=== PATIENT | female | born 1935 | race African-American/Black ===

== ENCOUNTER 2017-07-12 16:35 | Inpatient (IN) | payer MEDICARE ==
[~2017-07-12 16:35] MED LIST: ISOVUE-370 76%-LOCM 1 ML ONE
[2017-07-12] MEDS ORDERED: Fentanyl 100 MCG/2 ML VIAL ONE (17:27)
[2017-07-12] MEDS ORDERED: Ondansetron HCl/PF 4 MG/2 ML Vial ONE (17:27)
[2017-07-12 17:38] LABS: Hemoglobin 10.9 g/dL (12.0-16.0); Mean Corpuscular HGB CONC 31.7 g/dL (32.0-36.0); Mean Corpuscular Hemoglobin 34.4 pg (27.0-31.0); Mean Platelet Volume 8.5 fL (7.4-10.4); Platelet Count 132 thou/uL (130-400); RBC Distribution Width 13.3 % (11.5-14.5); Red Blood Cell (RBC) Count 3.16 mill/uL (4.20-5.40); White Blood Cell (WBC) Count 16.8 thou/uL (4.8-10.8)
[2017-07-12 17:59] LABS: ALT (SGPT) 36 U/L (8-55); AST (SGOT) 45 U/L (5-34); Alkaline Phosphatase 84 U/L (40-150); Anion Gap 18 mmol/L (10-20); BUN (Urea Nitrogen) 29 mg/dL (9.8-20.1); Bilirubin, Total 0.6 mg/dL (0.2-1.2); Calc. Creatinine Clearance 0 mL/min (70-130); Carbon Dioxide 25 mmol/L (23-31); Chloride 95 mmol/L (98-107); Estimated GFR-MDRD 4; Globulin 3.1 g/dL (2.4-3.5); Glucose 124 mg/dL (83-110); Lipase 20 U/L (8-78); Magnesium 1.4 mg/dL (1.6-2.6); Protein, Total 6.1 g/dL (6.0-8.3); Sodium 135 mmol/L (136-145)
[2017-07-12 18:01] LABS: Band 4 % (5-11); CKMB 1.8 ng/mL (0-6.6); Lymphocytes 2 % (21-51); MDiff Complete? YES; Monocytes 6 % (0-10); Neutrophil 88 % (42-75); PLT Morphology Comment Appears Adequate; Troponin I 0.074 ng/mL (< 0.028)
--- NOTE | 2017-07-12 19:15 | RAD ---
CHEST ONE VIEW: History: Pneumonia. Comparison: 07-09-17 FINDINGS: Right vascular stent is present in the axilla and subclavian regions. Pulmonary edema is improving. H eart size is not as large as the prior exam. Severe degenerative disease of the left shoulder. Mild atelectatic changes in the lung bases. IMPRESSION: 1. Mild interval improvement of the volume overload/edema. 2. Small right effusion. 3. Atelectasis lung base. POS: [facility]
--- NOTE | 2017-07-12 19:39 | CT ---
CT ABDOMEN AND PELVIS WITH CONTRAST: History: Abdominal pain, nausea, vomiting. Comparison: 01-22-14 FINDINGS: There are atelectatic changes in the lung bases. Pulmonary trunk is mildly enlarged. No pericardiac e ffusion. There is small volume of intraperitoneal gas between the anterior right hemidiaphragm and the liver. There is also other foci of gas scattered throughout the abdomen as well as gas extending into the um bilicus. Small volume free fluid in the pelvis. Kidneys are atrophic. There are extensive calcifications of the aorta and anterior vessels. Calcified uterine fibroids. Peritoneal dialysis catheter is in place with gas along the dependent lum en. According to the notes the patient just had some fluid taken off of the abdomen. Large severe degenerative disc space disease at L3-4 and L4-5. 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 Mild paraspinal musculature or atrophy. There are fibroserous cysts ==== normal head and neck junctions, as well as subchondral cysts in the acetabulum. There are erosions of the SI joints. These are all sequellae of chronic renal failure and dialysis. IMPRESSION: 1. Multifocal small foci of intraperitoneal gas, likely sequaellae of patient's peritoneal dialysis g iven that there is gas within the lumen of the catheter. Clinical correlation advised. 2. Small volume free fluid in the pelvis. 3. No evidence for bowel obstruction. 4. Normal appendix. 5. Moderately calcified aorta and mesenteric vessels. A component of low grade ischemia cannot be tot ally excluded. 6. New from the comparison examination, abnormal wedge shaped area of splenic hypoperfusion suggests infarction. This may be the source of patient's pain. POS: [facility]
[2017-07-12] MEDS ORDERED: Morphine 4 MG/ML VIAL ONE (20:32)
[2017-07-12] MEDS ORDERED: cefTRIAXone\\ROCEPHIN 2 GM in Sodium Chloride 0.9% 100 ML IVPB SCH (20:45)
[2017-07-12 21:16] LABS: Fluid, Glucose 458 mg/dL (Not Available); Fluid, Protein Less than 1.0 g/dL (Not Available)
[2017-07-12] MEDS ORDERED: Ondansetron ODT 4 MG TAB PO PRN (21:26)
[2017-07-12] MEDS ORDERED: Bisacodyl 5 MG TAB PO PRN (21:26)
[2017-07-12] MEDS ORDERED: Ondansetron HCl/PF 4 MG/2 ML Vial IVP PRN (21:26)
[2017-07-12] MEDS ORDERED: Acetaminophen 325 MG TAB PO PRN (21:26)
[2017-07-12] MEDS ORDERED: Acetaminophen 650 MG Suppository PR PRN (21:26)
[2017-07-12] MEDS ORDERED: Morphine 4 MG/ML VIAL SLOW IVP PRN (21:26)
[2017-07-12 21:32] LABS: Body Fluid Source PERITONEAL FLUID; Clarity Clear (Clear)
[2017-07-12 21:33] LABS: BF Color Colorless; BF RBC Count - Manual 1 /cumm; BF WBC/Nonhematics Ct. - Manua 81 /cumm; Tube # EDTA
[2017-07-12 21:46] LABS: Lactic Acid 2.6 mmol/L (0.5-2.2)
[2017-07-12 22:04] LABS: BF Segmented Neutrophils 86 %; Cell Count Non Hematic 13 %; Lymphocytes 1 %
[2017-07-13 00:30] LABS: Troponin I 0.069 ng/mL (< 0.028)
--- NOTE | 2017-07-13 02:05 | HP ---
PRIMARY CARE PHYSICIAN: Dr. Vasquez. CHIEF COMPLAINT: Abdominal pain. HISTORY OF PRESENT ILLNESS: This is a 81-year-old -[place] female with a known history of hy pertensive renal disease now on peritoneal dialysis. She had previously been on hemodialysis pickup, clotting off her fistulas, and so eventually was switched to peritoneal dialysis. She has been feel ing poorly for the past week, was seen in the emergency room three days ago for generalized weakness and was discharged home after checking her peritoneal fluid analysis. Patient has also been vomiting regularly for the last week and a half everytime she eats solid food and overall is feeling poorly, her blood pressure has been borderline as well. She had not taken any of her antihypertensives for a bout 3 months and occasionally has to change her dialysate fluid to adjust for low blood pressures. Patient reports that sometime during the day that she is not sure exactly when she started having per iumbilical abdominal pain. The pain migrated into the right upper quadrant then down to the suprapub ic area and occasionally is diffuse as well. Patient reports it became severe in the afternoon, and so she eventually came into the emergency room to be evaluated. She is unable to characterize the pa in any further and has no other associated symptoms with it. In the ER, she had a CT of the abdomen done as well as a peritoneal fluid analysis done. Her CT of the abdomen did show a new-splenic infar ct, otherwise unremarkable except for changes from her peritoneal dialysis including a very small caleb unt of the urine in the catheter and into the belly. She received Zofran, fentanyl, and morphine in the emergency room and is feeling much better now. PAST MEDICAL HISTORY: 1. End-stage renal disease on peritoneal dialysis. 2. Hypertension. 3. Diabetes mellitus, type 2 off medications for several years due to her advancing renal dysfunctio n. 4. Dyslipidemia. 5. Morbid obesity. PAST SURGICAL HISTORY: Patient has had multiple access procedures in her upper extremities and now h as a peritoneal dialysis catheter in place. ALLERGIES: 1. HYDRALAZINE. 2. H1N1 FLU VACCINE. SOCIAL HISTORY: Patient is a former smoker, quit in 1987, very rare. Alcohol none recently, no illi cit drug use. FAMILY HISTORY: Significant for diabetes, hypertension, and stroke. CURRENT MEDICATIONS: 1. Sensipar 180 mg daily. 2. Calcium acetate 667 mg 2 capsules 3 times a day. 3. Gabapentin 300 mg 3 times a day. 4. Aspirin 81 mg daily. 5. Vitamin D3 of 2000 units 2 caps a day. 6. Dialyvite 800 with Zinc 15, 0.1 mg/15 mg daily. REVIEW OF SYSTEMS: Constitutional: No fevers or chills. She does get cold easily. Eyes: She had blurred vision last week, several days ago and got worse when she was seen in the emergency room on , has since resolved. No flashing lights, no other eye complaints. ENT: No congestion, drai nage, or sore throat. Specifically today, she does get chronic nasal congestion from allergies. Car diovascular: No chest pain, no palpitations or racing heart. Pulmonary: No coughing, wheezing, or shortness of breath. Gastrointestinal: See HPI. Nausea and vomiting have been chronic issue for at least a week and a half from possibly longer, just vomiting undigested food if she eats solid food. No diarrhea or constipation. Genitourinary: Patient does not produce any urine. Musculoskeletal: Patient has some chronic muscle aches in her joints, especially in her hands and some numbness in he r fingers, this is chronic. No acute musculoskeletal changes. Skin: No rashes or lesions is noted. Neurologic: She has chronic numbness and tingling in her fingers of both hands, this has not grady ed recently. No lateralizing weakness or other focal neurologic symptoms. PHYSICAL EXAMINATION: VITAL SIGNS: Blood pressure 118/55, pulse 102, respirations 20, temperature 97.9, O2 sat 98% on room air, pain originally 8/10, now significantly improved. GENERAL: This is a well-developed, obese, female in no apparent distress. HEENT: Pupils are equal, round, and reactive to light. She does have bilateral cataracts. Orophary nx is clear without lesions, erythema, or exudate. She has moist mucous membranes. NECK: Supple, no lymphadenopathy, no thyroid nodules or enlargement, no JVD. HEART: Regular rate and rhythm. No murmurs, rubs, or gallops. LUNGS: Clear to auscultation bilaterally. No wheezes, crackles, or rhonchi. ABDOMEN: Soft, mild tenderness to palpation, diffusely more significant tenderness to palpation on t he left, palpation deeply and suprapubically as well. No guarding, no rebound tenderness. Normoacti ve bowel sounds, no distention. Peritoneal dialysis catheter is in place. There is no surrounding r edness or drainage. EXTREMITIES: No clubbing or cyanosis. She has trace pretibial edema bilaterally. SKIN: No rashes or lesions noted. NEUROLOGIC: She has no facial droop. She has deep tendon reflexes 2+ in all extremities and she has equal strength in all extremities. LABORATORY DATA: CBC with a white blood cell count of 16.8, this is up from 13 three days ago, hemog lobin 10.9, which is stable from her previous hematocrit 34.3, platelet count 132. She has 88% neutr ophils, but only 4% bands. Complete metabolic panel: Sodium of 135, potassium is low at 3.0, chlori de 95, BUN 29, creatinine 11.54, glucose is 124, magnesium 1.4. AST is 45. Albumin is 3.0. The rem ainder is normal. Cardiac marker set: First set is indeterminate. Troponin 0.074, this is about st able with her baseline. Lactic acid was elevated at 2.8. This is significantly down from 5.5, which was on 3 days ago. The peritoneal fluid analysis showed the fluid glucose of 458 and total protein of less than 1.0. The cell count is still pending. Cultures of blood and peritoneal fluid culture h ave both been sent. Imaging CT scan of the abdomen and pelvis with contrast shows multifocal small f oci of intraperitoneal gas likely secondary to peritoneal dialysis catheter given that there is gas i n the lumen. There is small volume of free fluid, no evidence for bowel obstruction, normal appendix , moderately calcified aorta and mesenteric vessels and then a new abnormal wedge-shaped area splenic hypoperfusion suggesting infarction. ASSESSMENT AND PLAN: 1. Abdominal pain most likely secondary to patient's new splenic infarct. We will control pain with morphine and nausea with Zofran. Patient has a history of clotting off catheter in her AV fistulas suspicious for an underlying clotting disorder. We will have Hematology consult and evaluate the pat ient. Patient does have possibility of an intraperitoneal infection, though with her elevated white count. Her peritoneal fluid is being analyzed and cultured and we may have given her Rocephin in the emergency room, we will go and continue that daily until the cultures come back negative. We will c onsult Dr. Yepez for patient's end-stage renal disease on peritoneal dialysis to continue her dialysis in the hospital. 2. History of hypertension, now relatively hypotensive. This has been going on for months that she has not needed her blood pressure medications. We will monitor her closely. 3. Elevated lactic acid is actually improving. We will monitor closely for any evidence of intravas cular volume depletion and bolus fluids if needed that will need to be careful given her end-stage re nal disease. 4. Gastrointestinal prophylaxis. Put patient on Protonix daily. 5. Deep venous thrombosis prophylaxis. Given patient's recent clot in her history of previous clott ing, she is at a high risk, so we will put her on heparin subcutaneous and we will put her on sequent ial compression devices while in bed. We will try and have her ambulate with physical therapy in the hospital. CODE STATUS: Discussed with the patient. She is a FULL CODE. Should she be incapacitated her cuauhtemoc rex would be her medical decision makers those are Vane Mederos and Elisa Hughes.
[2017-07-13 04:50] LABS: Anion Gap 19 mmol/L (10-20); BUN (Urea Nitrogen) 32 mg/dL (9.8-20.1); Calc. Creatinine Clearance 0 mL/min (70-130); Calcium 9.5 mg/dL (7.8-10.44); Carbon Dioxide 24 mmol/L (23-31); Chloride 97 mmol/L (98-107); Estimated GFR-MDRD 4; Glucose 96 mg/dL (83-110); Sodium 137 mmol/L (136-145)
[2017-07-13 05:05] LABS: Potassium 2.8 mmol/L (3.5-5.1)
[2017-07-13 05:07] LABS: Band 7 % (5-11); Hemoglobin 10.2 g/dL (12.0-16.0); Lymphocytes 2 % (21-51); MDiff Complete? YES; Macrocytosis SLIGHT = 6-15 cells (100X) (0-5/hpf); Mean Corpuscular HGB CONC 30.9 g/dL (32.0-36.0); Mean Corpuscular Hemoglobin 33.7 pg (27.0-31.0); Mean Platelet Volume 8.5 fL (7.4-10.4); Monocytes 9 % (0-10); Neutrophil 82 % (42-75); Nucleated RBC 1 % (0); Platelet Count 129 thou/uL (130-400); RBC Distribution Width 13.3 % (11.5-14.5); Red Blood Cell (RBC) Count 3.03 mill/uL (4.20-5.40); White Blood Cell (WBC) Count 17.8 thou/uL (4.8-10.8)
[2017-07-13] MEDS ORDERED: Potassium Chloride 20 MEQ TAB ONE (08:49)
[2017-07-13] MEDS ORDERED: HumaLOG 300 UNITS/3 ML VIAL SC PRN ×2 (09:57)
[2017-07-13] MEDS ORDERED: Dextrose 5% in Water 1,000 ML IV PRN (09:57)
[2017-07-13] MEDS ORDERED: Dextrose 50% Abboject 50 ML SYRINGE SLOW IVP PRN (09:57)
[2017-07-13] MEDS ORDERED: Pantoprazole 40 MG VIAL ONE (11:20)
--- NOTE | 2017-07-13 11:28 | CON ---
DATE OF CONSULTATION: 07/13/2017 HISTORY OF PRESENT ILLNESS: Ms. Mederos is a 81-year-old black female with ESRD - currently on liz toneal dialysis and admitted for abdominal pain. Imaging of the CAT scan showed splenic infarct. The patient tells me that her PD fluid is clear, making peritonitis less likely for the cause of the abdominal pain. We are now being consulted for her maintenance peritoneal dialysis. REVIEW OF SYSTEMS: Positive for abdominal pain. Positive for nausea, no diarrhea, no constipation, no headache, no diplopia, no fever or chills. Appetite and energy level is decreased. No gross mariana turia. No dysuria, no urinary frequency. No headache, no diplopia, occasional joint pains, no short ness of breath. PAST MEDICAL HISTORY: 1. End-stage renal disease - on peritoneal dialysis. 2. Type 2 diabetes mellitus. 3. Hypertension. 4. Dyslipidemia. 5. History of morbid obesity. 6. The patient also has history of congestive heart failure. 7. Obstructive sleep apnea. PAST SURGICAL HISTORY: 1. Status post PD catheter placement. 2. Status post cuffed dialysis catheter placement. 3. Status post AV fistula. ALLERGIES: ? HYDRALAZINE. TRAUMA: None. IMMUNIZATIONS: Up to date. HOSPITALIZATIONS: Please see past medical history. FAMILY HISTORY: No family history of ESRD. SOCIAL HISTORY: The patient lives in [place]. Sedentary lifestyle. Smoked for 27 years, 2 packs a da y, currently not smoking. Alcohol rarely. Status post blood transfusion. No IV drug abuse. Seven daughters. PHYSICAL EXAMINATION: VITAL SIGNS: Blood pressure 118/55, heart rate 102, respiratory rate 20, temperature 97.9, O2 sat 98 %. GENERAL: Awake, supine, obese, not in overt distress. SKIN: Adequate turgor. HEENT: She has pinkish conjunctivae, anicteric sclerae. NECK: No neck mass, no carotid bruits, no JVD. CHEST: No deformities. LUNGS: Clear breath sounds. No wheezing, no crackles. HEART: Normal sinus rhythm. No murmur, no gallops, no rubs. ABDOMEN: Globular, soft, nontender, no masses. Positive for PD catheter. EXTREMITIES: Trace edema. NEUROLOGIC: Awake, oriented to 3 spheres. Moving all extremities. No tremors, no asterixis, no kulwinder leny. LABORATORY: 07/13/2017 - White count 17.8, hemoglobin 10.2. Sodium 137, potassium 2.8, chloride 97, carbon dioxide 24, BUN 32, creatinine 12.03, troponin I 0.069. CT scan of the abdomen shows a splenic infarct. ASSESSMENT AND PLAN: 1. End-stage renal disease, stable. We will continue current CCPD regimen of 10-1/2 hours alternati ng with 1.5 and 2.5% PD solution. The fill volume will be determined based on outpatient peritoneal dialysis regimen. Review of the last Kt/V suggests she is adequately dialyzed. 2. Borderline anemia. We will continue to observe. Hold off any Epogen for the moment. 3. Splenic infarct, supportive care, pain medications. If needed, consider Hematology consult. Overall, I agree with current management.
[2017-07-13] MEDS ORDERED: Heparin 5,000 UNITS/ML VIAL ONE (11:37)
[2017-07-13] MEDS: Heparin 5,000 UNITS/ML VIAL SC SCH ×2 (14:45→21:15)
[2017-07-13] MEDS: Pantoprazole 40 MG VIAL IVP SCH (14:45)
[2017-07-13] MEDS: Docusate 100 MG CAP PO SCH ×2 (14:45→21:14)
--- NOTE | 2017-07-13 15:58 | PDOC.PN ---
- Subjective Encounter Start Date: 07/13/17 Encounter Start Time: 15:56 Subjective: feels a little better. AP controlled w pain meds - Objective Resuscitation Status: Resuscitation Status FULL:Full Resuscitation MAR Reviewed: Yes Result Diagrams: 07/13/17 03:42 07/13/17 03:42 Additional Labs: Accuchecks 07/13/17 15:13 POC Glucose 164 H Microbiology 07/12/17 17:25 Nasopharyngeal swab Influenza Types A,B Direct EIA - Final 07/12/17 18:02 Peritoneal Fluid Culture - Pending Body Fluid Culture - Preliminary 07/12/17 17:29 Venous blood - Left Hand Blood Culture - Preliminary Specimen has been received and culture in progress. No Growth to date. 07/12/17 17:23 Venous blood - Left Arm Blood Culture - Preliminary Specimen has been received and culture in progress. No Growth to date. Phys Exam - Physical Examination Constitutional: NAD HEENT: PERRLA, moist MMs, sclera anicteric, oral pharynx no lesions Neck: no nodes, no JVD, supple, full ROM Respiratory: no wheezing, no rales, no rhonchi, clear to auscultation bilateral Cardiovascular: RRR, no significant murmur Gastrointestinal: soft, non-tender, no distention, positive bowel sounds Musculoskeletal: no edema, pulses present Neurological: non-focal, normal sensation, moves all 4 limbs Psychiatric: normal affect, A&O x 3 Skin: no rash Dx/Plan (1) Abdominal pain Code(s): R10.9 - UNSPECIFIED ABDOMINAL PAIN Status: Acute (2) Splenic infarct Code(s): D73.5 - INFARCTION OF SPLEEN Status: Acute (3) H/O: GI bleed Code(s): Z87.19 - PERSONAL HISTORY OF OTHER DISEASES OF THE DIGESTIVE SYSTEM Status: Acute (4) Hypokalemia Code(s): E87.6 - HYPOKALEMIA Status: Acute (5) Hypotension Status: Acute Comment: Improved, Monitor trend, hold all antihypertensives (6) ESRD (end stage renal disease) on dialysis Code(s): N18.6 - END STAGE RENAL DISEASE; Z99.2 - DEPENDENCE ON RENAL DIALYSIS Status: Chronic Comment: Continue PD per Renal service (7) Macrocytic anemia Code(s): D53.9 - NUTRITIONAL ANEMIA, UNSPECIFIED Status: Chronic Comment: Continue Epo, no active blood loss, repeat CBC in am (8) Morbid obesity Code(s): E66.01 - MORBID (SEVERE) OBESITY DUE TO EXCESS CALORIES Status: Chronic (9) Troponin level elevated Code(s): R74.8 - ABNORMAL LEVELS OF OTHER SERUM ENZYMES Status: Acute Comment: Chronic - Plan plan discussed w/ family, continue antibiotics, PT/OT, out of bed/ambulate, DVT proph w/SCDs Pt reports h/o easy clotting & being on Couadin few months ago w HD -: but also give sH/O GIB 2-3 months ago.now w splenic infarct. -: ? need for Chr AC.Hematology consulted.will consult GI as well. -: Cont empiric ABx for SBP prophylaxis. -: Nephrology for HD.Potassium replaced.HD tonight * .am labs. * HD stable. * Hold BP meds as BP lower side Review of Systems - Review of Systems Constitutional: weakness, malaise. negative: fever, chills, sweats, other Respiratory: negative: Cough, Dry, Shortness of Breath, Hemoptysis, SOB with Excertion, Pleuritic Pain, Sputum, Wheezing Cardiovascular: negative: chest pain, palpitations, orthopnea, paroxysmal nocturnal dyspnea, edema, light headedness, other Gastrointestinal: negative: Nausea, Vomiting, Abdominal Pain, Diarrhea, Constipation, Melena, Hematochezia, Other Genitourinary: negative: Dysuria, Frequency, Incontinence, Hematuria, Retention , Other Musculoskeletal: negative: Neck Pain, Shoulder Pain, Arm Pain, Back Pain, Hand Pain, Leg Pain, Foot Pain, Other Neurological: negative: Weakness, Numbness, Incoordination, Change in Speech, Confusion, Seizures, Other - Medications/Allergies Allergies/Adverse Reactions: Allergies Allergy/AdvReac Type Severity Reaction Status Date / Time hydralazine [Hydralazine] Allergy Verified 07/13/17 15:53 influenza virus vaccine, Allergy Verified 07/13/17 15:53 specific [Influenza Virus Vacc,Specific] Medications: Current Medications Acetaminophen (Tylenol) 650 mg PO Q4H PRN PRN Reason: Headache/Fever or Pain Acetaminophen (Tylenol) 650 mg [place] Q4H PRN PRN Reason: Headache/Fever or Pain Bisacodyl (Dulcolax) 10 mg PO DAILYPRN PRN PRN Reason: Constipation Dextrose/Water (Dextrose 50%) 25 gm SLOW IVP PRN PRN PRN Reason: Hypoglycemia Docusate Sodium (Colace) 100 mg PO BID [facility] Last Admin: 07/13/17 14:45 Dose: Not Given Glucagon (Glucagon) 1 mg IM PRN PRN PRN Reason: Hypoglycemia Heparin Sodium (Porcine) (Heparin) 5,000 units SC TID [facility] Last Admin: 07/13/17 14:45 Dose: Not Given Ceftriaxone Sodium 2 gm/ (Sodium Chloride) 100 mls @ 200 mls/hr IVPB Q24HR [facility] Dextrose/Water (D5w) 1,000 mls @ 0 mls/hr IV .Q0M PRN; As Directed PRN Reason: Hypoglycemia Insulin Human Lispro (Humalog) 0 units SC .MILD SLIDING SCALE PRN PRN Reason: Mild Correctional Scale Insulin Human Lispro (Humalog) 0 units SC .BEDTIME SLIDING SC PRN PRN Reason: Bedtime Correctional Scale Morphine Sulfate (Morphine) 4 mg SLOW IVP Q3H PRN PRN Reason: pain > 3 Ondansetron HCl (Zofran Odt) 4 mg PO Q6H PRN PRN Reason: Nausea/Vomiting Ondansetron HCl (Zofran) 4 mg IVP Q6H PRN PRN Reason: Nausea/Vomiting Pantoprazole Sodium (Protonix) 40 mg IVP DAILY [facility] Last Admin: 07/13/17 14:45 Dose: Not Given
[2017-07-13 16:22] VITALS: BMI 45.6
[2017-07-13] MEDS: Potassium Chloride 20 MEQ TAB PO SCH (17:34)
[2017-07-13] MEDS ORDERED: Calcium Carbonate 500 MG ChewTAB PO PRN (20:19)
[2017-07-13] MEDS: cefTRIAXone\\ROCEPHIN 2 GM in Sodium Chloride 0.9% 100 ML IVPB SCH (21:03)
[2017-07-13] MEDS: Ondansetron ORAL SOLN. 4 MG/5 ML UDCUP PO SCH (22:14)
--- NOTE | 2017-07-13 22:47 | CON ---
DATE OF CONSULTATION: 07/13/2017 REASON FOR CONSULTATION: Splenic infarct. HISTORY OF PRESENT ILLNESS: Ms. Mederos is a pleasant 81-year-old - [place] female who has a history of end-stage renal disease and is on peritoneal dialysis. She has been feeling poorly with nausea, vomiting, and abdominal pain over the past week and so presented to the emergency room for evaluation. A CT scan of her abdomen and pelvis was performed, which showed moderately calcified aorta and mesenteric vessels. There was an abnormal wedge- shaped area of splenic hypoperfusion which suggested infarction. The patient has a history of fistula clotting in 2013. She underwent revision multiple times for this. She was on Coumadin low dose at some point; however, my understanding is, she had a GI bleed and this was stopped. She has been on peritoneal dialysis for some time and doing well. The patient denies any shortness of breath or dyspnea on exertion. She is sedentary but uses a wheelchair and walker at home. She has had a poor appetite over the past week. She complains of abdominal pain; however, it was generalized and diffuse in the lower abdomen. She did have diarrhea several days ago, but none since. Denies any history of blood clots in the legs or any history of pulmonary embolism. PAST MEDICAL HISTORY: 1. End-stage renal disease on peritoneal dialysis. 2. Hypertension. 3. Diabetes mellitus type 2. 4. Dyslipidemia. 5. Morbid obesity. PAST SURGICAL HISTORY: 1. Fistula placement with stents. 2. Peritoneal dialysis placement. ALLERGIES: HYDRALAZINE and FLU VACCINE. HOME MEDICATIONS: 1. Calcium acetate daily. 2. Vitamin D daily. 3. Sensipar daily. 4. Renvela daily. FAMILY HISTORY: No family history of clotting. SOCIAL HISTORY: Single, lives with her family. Former smoker. No alcohol or illicit drug use. REVIEW OF SYSTEMS: CONSTITUTIONAL: No fever, chills, night sweats. EYES: No blurred or double vision. ENT: No pain, hoarseness, sore throat, or dysphagia. CARDIOVASCULAR: No chest pain, palpitations, or syncope. RESPIRATORY: No shortness of breath, dyspnea on exertion or orthopnea. GASTROINTESTINAL: Positive for nausea, vomiting, diarrhea, and abdominal pain. GENITOURINARY: No dysuria or hematuria. MUSCULOSKELETAL: No joint or back pain. SKIN: No rash or pruritus. HEMATOLOGICAL: No bleeding or bruising. Positive for clotting. SKIN: No rash. NEUROLOGIC: No weakness, headache, numbness, tingling, or seizure activity. PSYCHIATRIC: No anxiety or depression. PHYSICAL EXAMINATION: VITAL SIGNS: Temperature is 99.4, pulse is 104, respiratory rate 16, BP is 110/ 47. She is 98% on room air. GENERAL: This is an obese female in no acute distress. HEENT: Normocephalic, atraumatic. Pupils are equal and reactive to light. NECK: Supple. CARDIOVASCULAR: Regular rate and rhythm. LUNGS: Clear. ABDOMEN: Obese, nontender. She has no tenderness in her left or right upper quadrant to palpation. EXTREMITIES: No clubbing, cyanosis, or edema. SKIN: No rash. NEUROLOGICAL: Nonfocal. PSYCHIATRIC: The patient is alert, oriented, and appropriate. PERTINENT LABORATORY AND X-RAYS: Current WBCs 17.8, hemoglobin 10.2, hematocrit 33.1, platelet counts 129,000. She has 82% neutrophils, 7% bands, 2 % lymphocytes. Sodium is 137, potassium 2.8, chloride 97, CO2 is 24, BUN is 32 , creatinine is 12, calcium is 9.5. Troponin is 0.069. Magnesium is 1.4, total bilirubin is 0.6, AST is 45, ALT is 36, alkaline phosphatase is 84. Serum total protein is 6.1, albumin 3.0, globulin 3.1. CT scan per HPI. IMPRESSION: 1. Splenic infarction. 2. Remote history of gastrointestinal bleed on anticoagulation. 3. End-stage renal disease on peritoneal dialysis. 4. Leukocytosis with left shift. DISCUSSION: The case was reviewed and discussed in detail with Dr. Jonathon Block. She has a very small splenic infarct. Her exam shows diffuse abdominal discomfort and is unlikely caused from the infarct. We will recommend conservative management including symptomatic pain control. We do not feel she needs any further hypercoagulation workup. Her renal failure is likely the cause of increase clotting issues. This was discussed with the patient and family. Thank you for the consult. JANES
--- NOTE | 2017-07-13 23:24 | CON ---
DATE OF CONSULTATION: 07/13/2017 REASON FOR CONSULTATION: Nausea and vomiting. CONSULTING PHYSICIAN: Sarahi Lemus M.D. HISTORY OF PRESENT ILLNESS: The patient is a 81-year-old -[place] female with past medical history of hypertension, diabetes, hyperlipidemia, morbid obesity and end-stage renal disease on peritoneal dialysis who was initially admitted for generalized weakness and nausea/vomiting. She states that she was in her usual state of health until approximately 5 to 6 days ago when she began to experience increased abdominal pain, nausea, and vomiting. Her nausea and vomiting would occur almost every time she ate, primarily with solid foods with intermittent episodes of emesis with liquids, but not always. Accompanied with this was mid epigastric/left upper quadrant abdominal pain characterized as sharp, stabbing, severity 8/10 in nature with no clear alleviating or exacerbating factors. With worsening of this abdominal pain was prompted her to come to the ER for medical assistance. While in the ER, she had a CT abdomen and pelvis done, which showed a new splenic infarct and she was admitted for pain control and evaluation of possible infection secondary to elevated white blood cell count. While as an inpatient, she continues to have nausea and vomiting that awoke her with almost every single episode of food intake. However, today she was able to drink a bottle of Ensure without any associated vomiting afterwards. Currently, denies any fevers, chills, shortness of breath, dysphagia, odynophagia, or diarrhea. Of note, she also states that she has been having significant constipation for the last 2 to 3 weeks having one solid bowel movement every 2 to 3 days that would require increased straining and pressure to the abdomen to facilitate having a bowel movement. She was ultimately given lactulose by her primary care physician with increased abdominal bloating and flatus shortly after administration. Since she has been admitted to the hospital, she has had exact approximately one solid bowel movement with incomplete sensation of emptying her bowels. At that time, it did require significant straining and was hard in consistency. REVIEW OF SYSTEMS: A 12 category review of systems was performed with questioning negative except for the pertinent positives as listed in the HPI. PAST MEDICAL HISTORY: As per HPI. PAST SURGICAL HISTORY: Multiple procedures for AVF placement in her upper extremities, peritoneal dialysis catheter placement. SOCIAL HISTORY: Denies any tobacco, alcohol, or illicit drug use. FAMILY HISTORY: Denies any GI malignancy. OUTPATIENT MEDICATIONS: Sensipar 180 mg daily, calcium acetate 667 mg 2 capsules 3 times daily, gabapentin 300 mg 3 times daily, aspirin 81 mg daily, vitamin D 2000 international units 2 caps daily, Dialyvite 800 with zinc 15, 0.1 mg/50 mg daily. ALLERGIES: HYDRALAZINE and FLU VACCINATION. PHYSICAL EXAMINATION: VITAL SIGNS: Temperature 99, pulse 103, blood pressure 120/55, respiratory rate 20, satting 96% on room air. GENERAL: The patient is lying comfortably in bed in no acute distress. Alert and oriented x4. HEENT: Pupils equal and round, reactive to light. Extraocular movements intact. NECK: Supple. No JVD noted. CARDIOVASCULAR: Regular rate and rhythm with slightly tachycardic rate. Upon further auscultation, no discernible gallops or rubs. A slight 3/6 systolic ejection murmur heard at the left upper sternal border. RESPIRATORY: Clear to auscultation bilaterally with no discernible wheezes or rales. ABDOMEN: Normoactive bowel sounds, soft, nondistended. Tenderness to palpation in the midepigastric right upper quadrant and right flank. EXTREMITIES: Minimal edema of the bilateral lower extremities. No cyanosis or clubbing. LABORATORY DATA: CBC with a white blood cell count of 17.8, hemoglobin 10.2, hematocrit 33.1, platelets 129. Chemistry with a sodium of 137, potassium 2.8, chloride 97, CO2 24, BUN 32, creatinine 12.03, glucose 96, AST 45, ALT 36, alkaline phosphatase 84, total bilirubin 0.6, albumin 3.0. IMAGING DATA: CT of the abdomen and pelvis obtained on 07/12/2017, showing multifocal foci of intraperitoneal gas. No bowel obstruction noted. Moderately calcified aorta and mesenteric vessels concerning for possible etiology of ischemia and new splenic infarct. Per my read, the CT scan shows fair amount of fecal matter seen within the colon, more so on the right colon than left. ASSESSMENT AND PLAN: The patient is a 81-year-old female with past medical history of hypertension, diabetes, hyperlipidemia, morbid obesity and end-stage renal disease on peritoneal dialysis, presenting with increased nausea and vomiting and abdominal pain. Nausea and vomiting The patient presenting with a 1 week history of increased/intractable nausea and vomiting occurring within 30-45 minutes after with the intake of any foodstuff whether it be solid or liquid food. However, she also describes significant constipation even prior to admission having one bowel movement every 2 to 3 days that was solid in consistency and would require increased straining and/or abdominal pressure in order to facilitate having a bowel movement. At the current time, she has not had a bowel movement since she was admitted to the hospital with her most recent bowel movement described as incomplete emptying of her bowels. At this time, her nausea and vomiting could be multifocal given the new splenic infarct degenerating increased abdominal pain resulting in nausea and vomiting. However, with significant constipation, it could potentially generate right-sided abdominal pain and with lack of defecation could cause backup of enteric contents and generate nausea and vomiting. RECOMMENDATIONS: 1. Would continue bisacodyl 10 mg suppository to facilitate having a bowel movement; however, would also add MiraLax 1 capsule daily also to facilitate having a bowel movement. 2. Would schedule antiemetics including Zofran 4 mg t.i.d. It can be coupled with lorazepam 1 mg daily for antiemetic effects. 3. Would avoid narcotic medications as they can slow the GI tract and increased constipation and/or cause nausea/vomiting. 4. Endoscopic evaluation is not indicated at this time. We will continue to follow. Please call with any questions. MTDD
[2017-07-14] MEDS: Ondansetron ORAL SOLN. 4 MG/5 ML UDCUP PO SCH ×4 (03:22→21:27)
[2017-07-14 06:34] LABS: Anion Gap 20 mmol/L (10-20); BUN (Urea Nitrogen) 34 mg/dL (9.8-20.1); Calc. Creatinine Clearance 8 mL/min (70-130); Calcium 9.4 mg/dL (7.8-10.44); Carbon Dioxide 21 mmol/L (23-31); Chloride 96 mmol/L (98-107); Estimated GFR-MDRD 4; Glucose 176 mg/dL (83-110); Sodium 134 mmol/L (136-145)
[2017-07-14 06:37] LABS: Hemoglobin 10.6 g/dL (12.0-16.0); Mean Corpuscular HGB CONC 30.3 g/dL (32.0-36.0); Mean Corpuscular Hemoglobin 33.3 pg (27.0-31.0); Mean Platelet Volume 8.4 fL (7.4-10.4); Platelet Count 155 thou/uL (130-400); RBC Distribution Width 13.4 % (11.5-14.5); Red Blood Cell (RBC) Count 3.19 mill/uL (4.20-5.40); White Blood Cell (WBC) Count 17.7 thou/uL (4.8-10.8)
[2017-07-14 06:38] LABS: Potassium 2.8 mmol/L (3.5-5.1)
[2017-07-14] MEDS ORDERED: Potassium Chloride 20 MEQ in Sodium Chloride 0.9% 250 ML 250 ML IVPB SCH (07:30)
[2017-07-14 08:13] LABS: Band 33 % (5-11); Lymphocytes 2 % (21-51); MDiff Complete? YES; Macrocytosis SLIGHT = 6-15 cells (100X) (0-5/hpf); Monocytes 2 % (0-10); Neutrophil 63 % (42-75); PLT Morphology Comment Appears Adequate; Polychromasia SLIGHT = 2-3 cells (100X) (0-2/hpf)
[2017-07-14] MEDS: Pantoprazole 40 MG VIAL IVP SCH (09:36)
[2017-07-14] MEDS: Polyethylene Glycol 3350 17 GM Packet PO SCH (09:37)
[2017-07-14] MEDS: Docusate 100 MG CAP PO SCH ×2 (09:39→21:28)
[2017-07-14] MEDS: Potassium Chloride 20 MEQ TAB PO SCH ×2 (09:39→17:51)
--- NOTE | 2017-07-14 09:39 | PRG ---
DATE OF SERVICE: 07/14/2017 SUBJECTIVE: Ms. Mederos is a 81-year-old black female with ESRD - on peritoneal dialysis, admitted for abdominal pain. She was found to have a small splenic infarct. The patient was on anticoagulati on before, but this was said to have been discontinued due to gastrointestinal bleed. She has been e valuated by GI and Hematology. No other complaints today, no chest pain, no shortness of breath. PHYSICAL EXAMINATION: VITAL SIGNS: Blood pressure is 93/46, heart rate 106, temperature is 100.3, respiratory rate 18, pul se ox 92%. GENERAL: Awake, obese, comfortable, not in distress. SKIN: Adequate turgor. HEENT: Pinkish conjunctivae, anicteric sclerae. NECK: No neck mass, no carotid bruits, no JVD. CHEST: No deformities. LUNGS: Clear breath sounds. No wheezing, no crackles. HEART: Normal sinus rhythm. No murmur, no gallops or rubs. ABDOMEN: Globular, soft, nontender, no masses. EXTREMITIES: No edema, no deformities. MEDICATIONS: 07/14/2017 - Reviewed. LABORATORY: 07/14/2017 - White count 17.7, hemoglobin 10.6, sodium 134, potassium 2.8, chloride 96, carbon dioxide 21, BUN 34, creatinine 11.49, glucose 176, calcium 9.4. 07/12/2017 - Chest x-ray shows increased lung markings. No infiltrates. ASSESSMENT AND PLAN: 1. End-stage renal disease, stable. Continuing current peritoneal dialysis regimen, tolerating said treatment. No changes to be made with the current peritoneal dialysis. 2. Hypokalemia, on potassium tablet supplementation. 3. Small splenic infarct, conservative management. Hematology and GI have been consulted. The issu e is whether this patient may need to be restarted back on anticoagulation. For the moment, continue conservative management with this patient. 4. Fever - currently on empiric IV antibiotics.
[2017-07-14] MEDS ORDERED: ISOVUE-370 76%-LOCM 1 ML ONE (10:02)
[2017-07-14] MEDS: Heparin 5,000 UNITS/ML VIAL SC SCH ×3 (10:05→21:29)
[2017-07-14] MEDS ORDERED: Heparin 10,000 UNITS/ 10 ML VIAL FS PRN (11:15)
[2017-07-14 12:23] LABS: BF Color Gray; Body Fluid Source PERITONEAL FLUID; Clarity Cloudy/Turbid (Clear)
[2017-07-14 12:24] LABS: RBC Background Count 0.002; Tube # EDTA
[2017-07-14 12:27] LABS: RBC Count-Automated 39000 /cumm; WBC/NonHematic-Auto 33300 /cumm
[2017-07-14 12:54] LABS: BF Segmented Neutrophils 93 %; Cell Count Non Hematic 7 %
--- NOTE | 2017-07-14 14:50 | PDOC.PN ---
- Subjective Encounter Start Date: 07/14/17 Encounter Start Time: 14:35 Subjective: f/u for abd pain suspected peritonitis in context of PD. Initial fluid cx -: neg. Also with splenic infarct on CT abd. Currently on Heparin SC and -: Rocephin/Flagyl. - Objective Resuscitation Status: Resuscitation Status FULL:Full Resuscitation MAR Reviewed: Yes Vital Signs & Weight: Vital Signs (12 hours) Temp Pulse Pulse Resp BP BP Pulse Ox 07/14/17 11:15 97.4 F L 113 H 16 129/59 L 91 L 07/14/17 09:35 103 H 121/67 07/14/17 04:00 100.3 F H 106 H 18 93/46 L 92 L Weight Admit Weight 266 lb Weight 266 lb I&O: 07/13/17 07/14/17 07/15/17 06:59 06:59 06:59 Intake Total 250 Balance 250 Result Diagrams: 07/14/17 05:35 07/14/17 05:35 Additional Labs: Accuchecks 07/14/17 07/14/17 07/13/17 11:47 06:00 19:59 POC Glucose 99 208 H 187 H 07/13/17 07/13/17 16:56 15:13 POC Glucose 115 H 164 H Microbiology 07/12/17 17:25 Nasopharyngeal swab Influenza Types A,B Direct EIA - Final 07/12/17 18:02 Peritoneal Fluid Culture - Pending Body Fluid Culture - Preliminary 07/12/17 17:29 Venous blood - Left Hand Blood Culture - Preliminary NO GROWTH AT 48 HOURS 07/12/17 17:23 Venous blood - Left Arm Blood Culture - Preliminary Specimen has been received and culture in progress. No Growth to date. Laboratory Tests 07/12/17 07/12/17 07/13/17 17:22 17:22 03:42 WBC 16.8 H Band Neuts % (Manual) 4 L Potassium 3.0 L 2.8 L* 07/13/17 07/14/17 03:42 05:35 WBC 17.8 H Band Neuts % (Manual) 7 33 H Potassium EKG Reviewed by me: Yes (Tele - Sinus tachycardia in 110's) Phys Exam - Physical Examination Constitutional: NAD HEENT: PERRLA Neck: no JVD, supple Respiratory: no wheezing, clear to auscultation bilateral tachycardic PD catheter in place mild TTP in mid-epigastric region Gastrointestinal: no distention, positive bowel sounds Musculoskeletal: no edema, pulses present Neurological: normal sensation, moves all 4 limbs Psychiatric: A&O x 3 Skin: normal turgor, cap refill <2 seconds Dx/Plan (1) Abdominal pain Code(s): R10.9 - UNSPECIFIED ABDOMINAL PAIN Status: Acute Qualifiers: Abdominal location: generalized Qualified Code(s): R10.84 - Generalized abdominal pain Comment: Suspect due to splenic infarct with ? peritonitis influence, continue tx as outlined below, sx mgmt with IV Morphine sulfate (2) Peritonitis (acute) generalized Code(s): K65.0 - GENERALIZED (ACUTE) PERITONITIS Status: Acute Comment: Suspected currently and tx with Rocephin and Flagyl, await final cx results (3) Splenic infarct Code(s): D73.5 - INFARCTION OF SPLEEN Status: Acute Comment: ? acute/ subacute, check 2D Echo to r/o thrombus, Add Vancomycin today, Hematology consult pending (4) ESRD (end stage renal disease) on dialysis Code(s): N18.6 - END STAGE RENAL DISEASE; Z99.2 - DEPENDENCE ON RENAL DIALYSIS Status: Chronic Comment: Continue PD per Renal service (5) Hypokalemia Code(s): E87.6 - HYPOKALEMIA Status: Acute Comment: KCL supplementation and repeat K+ level in am - Plan continue antibiotics, DVT proph w/SCDs Continue Rocephin and Flagyl -: Add Vancomycin 1gm IV x 1 dose now with ? staph influence given splenic -: infarct -: Check 2D echo to r/o thrombus -: KCL supplementation * AM lab: BMP, CBC
[2017-07-14 15:15] LABS: Anion Gap 23 mmol/L (10-20); BUN (Urea Nitrogen) 38 mg/dL (9.8-20.1); Calc. Creatinine Clearance 7 mL/min (70-130); Calcium 9.8 mg/dL (7.8-10.44); Carbon Dioxide 20 mmol/L (23-31); Chloride 96 mmol/L (98-107); Estimated GFR-MDRD 4; Glucose 128 mg/dL (83-110); Lactic Acid 6.3 mmol/L (0.5-2.2); Potassium 3.1 mmol/L (3.5-5.1); Sodium 136 mmol/L (136-145)
[2017-07-14] MEDS ORDERED: Vancomycin HCl 1 GM in Premix Bag 1 BAG IVPB SCH (15:30)
[2017-07-14] MEDS ORDERED: Gentamicin 80 MG/2 ML VIAL FS SCH (16:45)
--- NOTE | 2017-07-14 16:55 | PRG ---
DATE OF SERVICE: 07/14/2017 SUBJECTIVE: Ms. Mederos states that she felt a little better yesterday for a while and her pain cam e back today, fairly diffuse, more in the lower abdomen. She has had some nausea and vomiting of bro wn material, but no coffee grounds, no melena. She has had scant bowel movements. Presently, she is a little bit uncomfortable. PHYSICAL EXAMINATION: VITAL SIGNS: Temperature max 100.3, T-current 97, pulse 113, blood pressure 129/59. GENERAL: She is in mild distress. ABDOMEN: She has got a tender abdomen, but no rebound and no guarding. Bowel sounds are quiescent. There is no evidence of hernias or focal point tenderness. LABORATORY STUDIES: White count 17.7 today, similar has been yesterday and the day before. Hemoglob in is 10.6, platelet count 155. Sodium is 134, potassium 2.8, BUN and creatinine are 34 and 11.4. O n 07/12/2017, her liver function tests are normal except for an AST of 45 and lipase was 20. Body fl uids on 07/12/2017: Her peritoneal fluid was pretty clear with white count of 81 and red blood cells of 1. Today, it was rechecked. The fluid was cloudy and turbid with white count of 33,000, red blo od cells of 39,000. Cultures from 07/12/2017, blood and peritoneal fluid were negative. Cultures fr om today's are pending. ASSESSMENT: Seemingly she has some peritonitis. It is unclear if this is reactive and related to he r splenic infarct versus primary peritonitis. The fluid did look around the 7 when she initially cam e in. She is on Rocephin, I am going to add Flagyl because it is not clear if this is a primary liz tonitis with her dialysis. Reviewing her CAT scan, there was some free air on the initial images, bu t no overt signs of bowel inflammation or perforation. She was mildly constipated both by clinical r eport and by imaging. With regard to concern for her splenic infarct, I do not think there is any indication for anticoagul ation based on that alone. Dr. Yepez, when I talked to him was concerned that she had some issues with clotting of axis frequently has been on anticoagulation in the past and they want to start her on so mething for that may be reasonable. She does have very significant calcification of her SMA takeoff and celiac takeoff as well. If she shows any signs of acidosis or worsened function, may be reasonab le to reimage her, I consider CT mesenteric angiogram. I have discussed findings with both Dr. Yepez from Nephrology and Dr. Melissa from Internal Medicine. We are going to expand her antibiotic coverage to include some anaerobic coverage. We will recheck her base met profile today if she is giving more acidotic would be reasonable to reimage her or have Vasc ular Surgery evaluate her.
[2017-07-14] MEDS ORDERED: Sodium Chloride 0.9% 10 ML ONE ×3 (20:35→22:23)
[2017-07-14] MEDS: cefTRIAXone\\ROCEPHIN 2 GM in Sodium Chloride 0.9% 100 ML IVPB SCH (21:27)
[2017-07-14] MEDS ORDERED: Furosemide 20 MG/2 ML VIAL SLOW IVP SCH (22:00)
[2017-07-14] MEDS ORDERED: Furosemide 100 MG/10 ML VIAL SLOW IVP SCH (22:15)
[2017-07-14] MEDS: Nitroglycerin 2% Ointment 1 INCH/1 GM Packet TOP SCH ×3 (22:20→22:28)
[2017-07-14] MEDS ORDERED: Metoprolol Tartrate 5 MG/5 ML VIAL ONE (22:23)
[2017-07-14] MEDS ORDERED: Heparin 10,000 UNITS/ 10 ML VIAL SLOW IVP SCH (22:30)
[2017-07-14] MEDS ORDERED: Heparin 25,000 units/D5W 500 ML IVPB SCH (22:30)
--- NOTE | 2017-07-14 22:45 | RAD ---
PORTABLE CHEST ONE VIEW 07/14/17 at 9:45 p.m. HISTORY: Respiratory distress. FINDINGS/IMPRESSION: Comparison made with the exam of 07/12/17. The heart size is borderline. There is continued elevation of the right hemidiaphragm with adjacent a telectatic change. No pneumothoraces, chace pulmonary edema, or large effusions are seen. Vascular st ents on the right are again noted. POS: [facility]
[2017-07-14 23:06] LABS: PTT 38.6 SEC (22.9-36.1)
[2017-07-14 23:20] LABS: Anion Gap 33 mmol/L (10-20); BUN (Urea Nitrogen) 37 mg/dL (9.8-20.1); Calc. Creatinine Clearance 7 mL/min (70-130); Calcium 10.4 mg/dL (7.8-10.44); Carbon Dioxide 11 mmol/L (23-31); Chloride 94 mmol/L (98-107); Estimated GFR-MDRD 4; Glucose 190 mg/dL (83-110); Magnesium 1.4 mg/dL (1.6-2.6); Sodium 135 mmol/L (136-145)
[2017-07-14 23:20] LABS: D-Dimer Test 7.11 *mcg/mL (0.27-0.43)
[2017-07-14 23:21] LABS: Band 49 % (5-11); Dohle Bodies SLIGHT; Lymphocytes 6 % (21-51); MDiff Complete? YES; Macrocytosis SLIGHT = 6-15 cells (100X) (0-5/hpf); Mean Corpuscular HGB CONC 29.6 g/dL (32.0-36.0); Mean Corpuscular Hemoglobin 33.4 pg (27.0-31.0); Mean Platelet Volume 7.8 fL (7.4-10.4); Metamyelocyte 10 % (0-0); Monocytes 4 % (0-10); Myelocyte 2 % (0-0); Neutrophil 29 % (42-75); Nucleated RBC 2 % (0); PLT Morphology Comment Appears Adequate; Platelet Count 140 thou/uL (130-400); RBC Distribution Width 13.4 % (11.5-14.5); Red Blood Cell (RBC) Count 3.29 mill/uL (4.20-5.40); Vacuoles SLIGHT; White Blood Cell (WBC) Count 8.9 thou/uL (4.8-10.8)
[2017-07-14 23:25] LABS: Troponin I 0.103 ng/mL (< 0.028)
[2017-07-14 23:27] LABS: Potassium 2.9 mmol/L (3.5-5.1)
--- NOTE | 2017-07-14 23:37 | PDOC.EVN ---
Event Note - Event Note Event Note: Called by nurse for tachycardia,dyspnea of sudden onset while on PD.PD stopped Pt seen and examined.chart reviewed. Uncomfortable w nebs on.AAOx3.family at bedside. Coarse breath sounds .carckles b/l.no wheezes Regular but tachy. EKG done which shows sinus tachy. discussed w Dr. Yepez. Lasix 80 mg X1 and nitro paste to reduce pre-load. Pt still tachycardic.Presented w splenic infarct. ? PE. will order labs, D dimer,CTA stat and follow. transfer to IM.will monitor
--- NOTE | 2017-07-14 23:43 | CT ---
CT PULMONARY ANGIOGRAM WITH IV CONTRAST AND 3D POSTPROCESSING 07/14/17 HISTORY: Shortness of breath, chest pain. FINDINGS: There is good contrast opacification of the pulmonary arterial vasculature without filling defects to suggest pulmonary embolism. Vascular calcifications are present without evidence of thoracic aortic aneurysm or dissection. No pericardial or pleural effusions are seen. There are atelectatic changes o f mild infiltrates at the lung bases. There are degenerative changes in the spine. Vascular stents in the right subclavian, brachiocephalic veins and proximal IVC are present. There is free air and free fluid in the upper abdomen. There has been interval increase in the amount of free air since the CT abdomen and pelvis of 07/12/17. IMPRESSION: 1. No CT evidence of pulmonary embolism. 2. Interval increase in amount of free air in the upper anterior abdomen since 07/12/17. Possibili ty of bowel perforation should be considered. Findings are called over the telephone to the patient's nurse, Sharon Roger, at 11:34 p.m. Findings were also discussed over the telephone with Dr. Sarahi Lemus at 11:40 p.m. POS: [facility]
[2017-07-14] MEDS ORDERED: POTASSIUM CHLORIDE IVPB SCH (23:45)
[2017-07-14] MEDS ORDERED: SODIUM CHLORIDE 0.9% IVPB SCH (23:45)
[2017-07-14] MEDS ORDERED: Potassium Chloride 40 MEQ in Premix Bag 1 BAG IVPB SCH (23:45)
[2017-07-14] MEDS ORDERED: MAGNESIUM SULFATE IVPB SCH (23:45)
[2017-07-14] MEDS: metroNIDAZOLE 500 MG in Premix Bag 1 BAG IVPB SCH (23:53)
--- NOTE | 2017-07-15 01:53 | PDOC.EVN ---
Event Note - Event Note Event Note: CTA negative for PE.DC heparin drip. CT results discussed with radiologist.Concern for increased free fluid. Pt had just given PD fluids and got scan before removal.Yet,for concerns of perforation ,will consult GS.Belly benign on my exam save for some tenderness in epigatrium.pt came with AP and splenic infract. HD stable AADENDUM-Discussed with Dr. Izaguirre who will see the pt shortly
[2017-07-15] MEDS: Ondansetron ORAL SOLN. 4 MG/5 ML UDCUP PO SCH ×3 (02:55→16:03)
[2017-07-15 05:18] LABS: Band 55 % (5-11); Dohle Bodies SLIGHT; Hemoglobin 11.5 g/dL (12.0-16.0); Lymphocytes 9 % (21-51); MDiff Complete? YES; Macrocytosis SLIGHT = 6-15 cells (100X) (0-5/hpf); Mean Corpuscular HGB CONC 29.5 g/dL (32.0-36.0); Mean Corpuscular Hemoglobin 33.2 pg (27.0-31.0); Mean Platelet Volume 8.5 fL (7.4-10.4); Metamyelocyte 13 % (0-0); Monocytes 7 % (0-10); Myelocyte 1 % (0-0); Neutrophil 15 % (42-75); Nucleated RBC 2 % (0); Platelet Count 126 thou/uL (130-400); RBC Distribution Width 13.6 % (11.5-14.5); Red Blood Cell (RBC) Count 3.45 mill/uL (4.20-5.40)
[2017-07-15 05:55] LABS: Anion Gap 31 mmol/L (10-20); BUN (Urea Nitrogen) 39 mg/dL (9.8-20.1); Calc. Creatinine Clearance 7 mL/min (70-130); Calcium 10.6 mg/dL (7.8-10.44); Carbon Dioxide 11 mmol/L (23-31); Chloride 97 mmol/L (98-107); Estimated GFR-MDRD 4; Magnesium 1.6 mg/dL (1.6-2.6); Phosphorus 4.5 mg/dL (2.3-4.7); Potassium 3.4 mmol/L (3.5-5.1); Sodium 136 mmol/L (136-145)
[2017-07-15 06:07] LABS: Glucose 58 mg/dL (83-110)
[2017-07-15] MEDS: metroNIDAZOLE 500 MG in Premix Bag 1 BAG IVPB SCH ×2 (06:47→14:14)
[2017-07-15] MEDS: Nitroglycerin 2% Ointment 1 INCH/1 GM Packet TOP SCH ×2 (06:48→16:03)
[2017-07-15] MEDS ORDERED: Rocuronium Bromide 50 MG/5 ML VIAL ONE (10:03)
[2017-07-15] MEDS: Polyethylene Glycol 3350 17 GM Packet PO SCH (10:14)
[2017-07-15] MEDS: Potassium Chloride 20 MEQ TAB PO SCH (10:14)
[2017-07-15] MEDS: Docusate 100 MG CAP PO SCH (10:14)
[2017-07-15 10:19] LABS: Actual Bicarbonate (HCO3a) 4.8 mEq/L (22-26); Base Excess (BEa) -27.9 mEq/L (0 (+/-) 2.5); CO2 Tension 29.3 mmHg (35.0-45.0); Calcium, Ionized 1.4 mmol/L (1.12-1.30); Hematocrit-ABG 37.5 % (36.0-47.0); Hemoglobin (Hb) 9.8 g/dL (12.0-16.0); O2 Tension (PaO2) 293.3 mmHg (80.0-100.0)
[2017-07-15 10:20] LABS: pH, Arterial 6.83 (7.35-7.45)
[2017-07-15 10:21] LABS: ALV-art Gradient 379.075 (0-20); Puncture Site RF
[2017-07-15] MEDS ORDERED: Sodium Bicarb 50 MEQ/50 ML Abboject 8.4% SYRINGE ONE ×7 (10:23→17:36)
[2017-07-15] MEDS ORDERED: Propofol 1,000 MG/100 ML VIAL IV ONE (10:24)
[2017-07-15] MEDS ORDERED: EPINEPHrine 1 MG/10 ML Abboject SYRINGE ONE (10:28)
[2017-07-15] MEDS ORDERED: Norepinephrine 8 MG in Sodium Chloride 0.9% 250 ML 242 ML IVPB SCH (10:30)
[2017-07-15] MEDS ORDERED: Sodium Bicarbonate 150 MEQ in Dextrose 5% in Water 850 ML IV SCH (10:30)
[2017-07-15] MEDS ORDERED: Sedation Protocol FS ONE (10:32)
[2017-07-15] MEDS ORDERED: DISCONTINUE PREVIOUS NARCOTIC PAIN MEDICATIONS AND BENZODIAZEPINES FS SCH (10:43)
[2017-07-15] MEDS ORDERED: Fentanyl BOLUS 250 ML IVPB PRN (10:43)
[2017-07-15] MEDS ORDERED: Propofol 1,000 MG/100 ML VIAL IV PRN (10:43)
[2017-07-15] MEDS ORDERED: Lorazepam 2 MG/ML VIAL SLOW IVP PRN (10:43)
[2017-07-15] MEDS ORDERED: Morphine 2 MG/ML SYRINGE SLOW IVP PRN (10:43)
[2017-07-15] MEDS ORDERED: fentaNYL Citrate/PF 2,000 MCG in Sodium Chloride 0.9% 60 ML IV SCH (10:43)
--- NOTE | 2017-07-15 11:03 | PDOC.PN ---
- Subjective Encounter Start Date: 07/15/17 Encounter Start Time: 10:30 Subjective: f/u after Aniket Juarez called this am with resp distress and hypoglycemia. -: Pt moved to ICU after apparent SOB last pm and r/o for PE. ABG performed -: showed severe acidosis, pt intubated and placed on Levophed. - Objective Resuscitation Status: Resuscitation Status FULL:Full Resuscitation MAR Reviewed: Yes Vital Signs & Weight: Vital Signs (12 hours) Temp Pulse Resp BP Pulse Ox 07/15/17 07:53 97.6 F 119 H 22 H 117/46 L 93 L 07/15/17 07:32 98.2 F 72 20 94 L 07/15/17 04:00 98.2 F 72 20 94/46 L 100 07/14/17 23:35 98.8 F 118 H 24 H 94 L 07/14/17 23:32 98.8 F 118 H 24 H 100/40 L 94 L Weight Admit Weight 266 lb Weight 266 lb I&O: 07/14/17 07/15/17 07/16/17 06:59 06:59 06:59 Intake Total 250 1924 Output Total 0 Balance 250 1924 Result Diagrams: 07/15/17 04:27 07/15/17 04:27 Additional Labs: Accuchecks 07/15/17 07/15/17 07/15/17 09:09 09:03 08:45 POC Glucose 98 127 H 39 L* 07/15/17 07/15/17 07/15/17 07:00 06:37 05:51 POC Glucose 71 Less than 35 L* 40 L* 07/15/17 07/14/17 07/14/17 05:43 20:40 16:35 POC Glucose 41 L* 191 H 132 H 07/14/17 11:47 POC Glucose 99 Microbiology 07/12/17 17:25 Nasopharyngeal swab Influenza Types A,B Direct EIA - Final 07/14/17 10:10 Peritoneal fluid Body Fluid Culture - Preliminary 07/12/17 18:02 Peritoneal Fluid Culture - Pending Body Fluid Culture - Preliminary 07/12/17 18:02 Peritoneal Fluid Culture - Pending Body Fluid Culture - Preliminary 07/12/17 17:29 Venous blood - Left Hand Blood Culture - Preliminary NO GROWTH AT 48 HOURS 07/12/17 17:23 Venous blood - Left Arm Blood Culture - Preliminary Specimen has been received and culture in progress. No Growth to date. Laboratory Tests 07/12/17 07/12/17 07/13/17 17:22 17:22 03:42 WBC 16.8 H Band Neuts % (Manual) 4 L Bicarbonate Actual ABG pH ABG pCO2 ABG pO2 ABG O2 Sat Calc/Reema Potassium 3.0 L 2.8 L* 07/13/17 07/14/17 07/14/17 03:42 05:35 22:53 WBC 17.8 H Band Neuts % (Manual) 7 33 H 49 H Bicarbonate Actual ABG pH ABG pCO2 ABG pO2 ABG O2 Sat Calc/Reema Potassium 07/15/17 07/15/17 04:27 10:15 WBC Band Neuts % (Manual) 55 H Bicarbonate Actual 4.8 L ABG pH 6.83 L* ABG pCO2 29.3 L ABG pO2 293.3 H ABG O2 Sat Calc/Reema 99.5 Potassium Radiology Reviewed by me: Yes (CT angio chest - no PE, +free air in upper abdomen) EKG Reviewed by me: Yes (Tele - sinus tach in 115's) Phys Exam - Physical Examination sedate, mech vent ETT in place HEENT: oral pharynx no lesions Neck: no JVD, supple diminished in bases tachycardic PD catheter in place Gastrointestinal: soft, no distention, positive bowel sounds Musculoskeletal: pulses present, edema present sedate on mech vent Skin: normal turgor, cap refill <2 seconds Dx/Plan (1) Acute respiratory failure with hypoxia Code(s): J96.01 - ACUTE RESPIRATORY FAILURE WITH HYPOXIA Status: Acute Comment: Intubated 07/15/16 on SIMV, Pulmonology consulted for vent mgmt (2) Septic shock Code(s): A41.9 - SEPSIS, UNSPECIFIED ORGANISM; R65.21 - SEVERE SEPSIS WITH SEPTIC SHOCK Status: Acute Comment: Suspected give likely bowel perforation , continue Rocephin, Flagyl and Vancomycin, Gen surgery consulted for laparoscopic investigation urgently, Levophed gtt to maintain BP pressure (3) Abdominal pain Code(s): R10.9 - UNSPECIFIED ABDOMINAL PAIN Status: Acute Qualifiers: Abdominal location: generalized Qualified Code(s): R10.84 - Generalized abdominal pain Comment: Suspect due to splenic infarct with ? peritonitis influence, continue tx as outlined below, sx mgmt with IV Morphine sulfate, Laparoscopy today (4) Peritonitis (acute) generalized Code(s): K65.0 - GENERALIZED (ACUTE) PERITONITIS Status: Acute Comment: Suspected currently and tx with Rocephin and Flagyl, await final cx results (5) Splenic infarct Code(s): D73.5 - INFARCTION OF SPLEEN Status: Acute Comment: ? acute/ subacute, check 2D Echo to r/o thrombus, Add Vancomycin today, Hematology consult pending (6) ESRD (end stage renal disease) on dialysis Code(s): N18.6 - END STAGE RENAL DISEASE; Z99.2 - DEPENDENCE ON RENAL DIALYSIS Status: Chronic Comment: Continue PD per Renal service (7) Hypokalemia Code(s): E87.6 - HYPOKALEMIA Status: Acute Comment: KCL supplementation and repeat K+ level in am (8) Hypoglycemia Code(s): E16.2 - HYPOGLYCEMIA, UNSPECIFIED Status: Acute Comment: D50 with D5 IVF's - Plan continue antibiotics, psychotherapist social worker, respiratory therapy, DVT proph w/SCDs Continue critical support -: Continue Levophed for hypotension -: Gen surgery planning urgent laparoscopy 07/15/17 -: Continue IVF's for pressure support -: Mech ventilation with SIMV * AM lab: BMP, CBC * Prognosis: Guarded
--- NOTE | 2017-07-15 11:05 | CON ---
DATE OF CONSULTATION: 07/15/2017 This is 40 minutes critical care time. REASON FOR CONSULTATION: Cardiopulmonary arrest. HISTORY OF PRESENT ILLNESS: This is a 81-year-old female, who was admitted to the hospital 2 days ag o by the hospitalist group with nausea and vomiting. She apparently has been found to have some type of splenic infarction. Also, has some degree of peritonitis. She had an arrest and on the floor ea rlier today and was transported to the ICU where she was endotracheally intubated by Dr. Sierra. Sanjana willis has been seen by my partner, Dr. Shearer, in the past. PAST MEDICAL HISTORY: 1. End-stage renal disease, requiring peritoneal dialysis. 2. Hypertension. 3. Diabetes mellitus, type 2. 4. Hyperlipidemia. 5. Morbid obesity. PAST SURGICAL HISTORY: Multiple dialysis access procedure. Now has a peritoneal dialysis catheter i n place. ALLERGIES: HYDRALAZINE, H1N1 FLU VACCINE. SOCIAL HISTORY: Former smoker, quit in 1987. Does not consume alcohol. FAMILY MEDICAL HISTORY: Remarkable for diabetes, hypertension, stroke. MEDICATIONS: Prior to admission, Sensipar, calcium acetate, gabapentin, aspirin, vitamin D3, Dialyvi te. REVIEW OF SYSTEMS: Cannot be obtained, as the patient is endotracheally intubated and unresponsive. History in this case is taken by reviewing the chart. PHYSICAL EXAMINATION: VITAL SIGNS: Heart rate 122, O2 sat 100%, respiratory rate 26, blood pressure thus far has been unde tectable. GENERAL: The patient is moving around without difficulty, on mechanical ventilation. HEENT EXAM: Sclerae anicteric. Oropharynx clear. NECK: No adenopathy or JVD. LUNGS: Clear to auscultation anteriorly bilaterally. CARDIOVASCULAR: S1, S2, slightly tachycardic without murmur. ABDOMEN: Distended. Peritoneal dialysis catheter noted. EXTREMITIES: Edematous. No rashes, bruising or jaundice noted. LABORATORY DATA: White blood cell count 9, hematocrit 38.8, platelet count 126. Sodium 136, potassi um 3.4, chloride 97, CO2 of 11, BUN 39, creatinine 12, glucose 39, calcium 10.6. Repeat glucose was 98. Peritoneal fluid showed excess white blood cells and red blood cells. A chest x-ray is pending. CT of the chest yesterday demonstrated no evidence of PE, but had free air in the upper anterior ab domen that had been present since 07/12. ASSESSMENT: 1. Peritonitis 2. Acute respiratory failure. 3. Status post cardiac arrest. 4. Acute on chronic renal failure. 5. Hypoglycemia with sepsis. PLAN: 1. The patient has been intubated and had been placed on mechanical ventilation. 2. I have placed central line in left groin as no other site was available. 3. Start Levophed drip. 4. General surgical opinion regarding the CT findings. The patient is critical. Prognosis is quite poor.
--- NOTE | 2017-07-15 11:12 | OP ---
DATE OF PROCEDURE: 07/15/2017 PROCEDURE: Central line placement. PREOPERATIVE DIAGNOSIS: Poor IV access. POSTOPERATIVE DIAGNOSIS: Successful left femoral triple-lumen catheter placement. ANESTHESIA: A 1% lidocaine without epinephrine. DESCRIPTION OF PROCEDURE: This was done on an emergent basis. The patient had no IV access and just had a cardiopulmonary arrest. The left IJ area was first attempted; I could cannulate the vessel, b ut could not pass a wire. Therefore, the left femoral region was chosen. Both sites were prepped wi th chlorhexidine and draped sterilely and the modified Seldinger technique was used to try to insert the triple-lumen catheter. This was successfully achieved in the left femoral area. Three ports flu shed venous blood.
[2017-07-15] MEDS ORDERED: Rocuronium Bromide 50 MG/5 ML VIAL IVP SCH (11:15)
[2017-07-15] MEDS ORDERED: Sodium Bicarb 50 MEQ/50 ML VIAL IVP SCH (11:15)
--- NOTE | 2017-07-15 11:17 | CON ---
DATE OF CONSULTATION: 07/15/2017 HISTORY OF PRESENT ILLNESS: Genna Mederos is a 81-year-old morbidly obese black female, 5 foot 4 , 266 pounds, 45 BMI who I have seen years past for dialysis access. Dr. Jack initially place a h emodialysis catheter 04/26/2009, I assumed her care after that, replacing the dysfunctional dialysis catheter on several occasions. She had a left wrist Wilder fistula that eventually thrombosed and wa s taken back to the operating room on 07/24/2009 for an upper arm fistula, seemed that would work wel l, but unfortunately it thrombosed and then on 09/26/2009 she had a right arm fistula inflow proximal radial artery, outflow cephalic and basilic vein. She underwent transposition of her cephalic vein, right upper arm 12/25/2009. She eventually had a peritoneal dialysis catheter placed and has been u ndergoing peritoneal dialysis. The patient was noted in 2013 to have an ejection fraction of 88% and a normal myocardial perfusion s can. She is admitted on this occasion to the Hospitalist Service through the emergency room 07/12/19 with abdominal pain. There is a report of nausea and vomiting for the past week and a half and in ability to tolerate solid foods with postprandial vomiting and abdominal pain and feeling poorly. Sanjana willis started having periumbilical pain, suprapubic pain and reported to the emergency room. CT scan of abdomen and pelvis was obtained, a peritoneal fluid analysis performed. She was noted to have a sple delmi infarct and the apparent drainage from her PD catheter was not concerning and cultures have been negative to date. The pain and nausea have been controlled with Zofran, fentanyl and morphine in the emergency room and she was admitted. Since being admitted, Gastroenterology has seen her, Dr. Jerome and Dr. Brock. They felt that she had some degree of peritonitis with documentation being made of abdominal tenderness lower abdomen, periumbilical area. A CTA was obtained 07/14/2017 was negative f or embolus, although it was felt that she had increased fluid in her abdominal cavity and air, which is probably consistent with her peritoneal dialysis status and not of concern. Her white count on ad mission was 16,000, today it is 9. She does have 49% bands last night, 55% bands this morning. Hemo globin is 11.5 currently, 10.9 yesterday. She was moved to the Intermediate Care Unit yesterday. Dr Fredrick Yepez was concerned that she was not adequately doing peritoneal dialysis and I was asked this ralphni ng early to place a hemodialysis catheter. In the interim, the patient coded and noted to have a pH of 6.1 and she was intubated. She was noted to have a severe metabolic acidosis. There is concern f or ischemic bowel. The patient is now intubated and unresponsive, sedated on 10 mcg of Levophed. Sh e has been noted to be tachycardic intermittently with early this morning heart rate 72, but earlier yesterday 118 to 124, sinus tachycardia. Blood pressure has been 110 to 120, dipping into 102 and on 07/14/2017 she was experiencing blood pressures in the 90s systolic intermittently. This morning it is 117/46. PAST MEDICAL HISTORY: End-stage renal disease on peritoneal dialysis. Hypertension, diabetes mellit type 2, dyslipidemia, morbid obesity. PAST SURGICAL HISTORY: Multiple dialysis access left and right arm as described. Most recent dialys is access cephalic vein transposition fistula right upper arm thrombosed, peritoneal dialysis cathete r placement elsewhere. ALLERGIES: HYDRALAZINE. SOCIAL HISTORY: The patient is a former smoker, cessation 1987. ALCOHOL: None recently. MEDICATIONS: Outpatient Sensipar, calcium, gabapentin, aspirin, vitamin D and Dialyvite. REVIEW OF SYSTEMS: Not possible. PHYSICAL EXAMINATION: VITAL SIGNS: Height 5 foot 4, 266 pounds, 45 BMI. The patient currently is on 10 mcg of Levophed. Heart rate 119, 98% sats. LUNGS: Clear to auscultation. CARDIAC: Regular rate and rhythm without murmur or gallop. ABDOMEN: Soft, tenderness in lower abdomen where she grimaces on exam. No bowel sounds appreciated. EXTREMITIES: Unremarkable. Cord in her right upper arm consistent with a thrombosed fistula, perito chicho dialysis catheter left lower quadrant abdomen. This morning her white count is 9, hemoglobin 11.5, sodium 136, potassium 3.4, carbon dioxide 11, BUN 39, creatinine 12. GFR 4, glucose has been low 41-58. She is on a dextrose drip, calcium 10.6, cortez sphorus 4.5, magnesium 1.6. Blood gas this morning, bicarbonate 4.8, pH 6.83, pCO2 of 29, pO2 293. ASSESSMENT AND PLAN: 1. Severe metabolic acidosis with abdominal pain and hypoglycemia. The patient is experiencing seps is. She has had a splenic infarct appreciated on recent CAT scan. She possibly could have a hyperco agulable state reflective of all of the fistula's that have thrombosed. Abdominal pain, acidosis and recent code is suspect for ischemic bowel. Peritoneal dialysis fluid cultures have been negative an d character is not suspicious for enteric leakage. The increased fluid and gas seen on her CAT scan probably reflective of her peritoneal dialysis status. At this point, I agree with Dr. Penn per o ur discussion this morning that laparoscopy and/or laparotomy is warranted to rule out ischemic bowel . We will plan that today. We will discuss with family. 2 Morbid obesity. 3. Hypertension. 4. Diabetes. 5. End-stage renal disease.
--- NOTE | 2017-07-15 11:26 | PRG ---
DATE OF SERVICE: 07/15/2017 SUBJECTIVE: Ms. Mederos is a 81-year-old black female with ESRD and currently on peritoneal dialysis. She was admitted for abdominal pain. Initially it was thought that the pain could be from a small splenic infarct. However, in the last 24 hours we noted her PD fluid to become cloudy. She is currently on IV ceftriaxone. In addition, I have placed vancomycin and gentamicin in the PD fluid. However, last night the peritoneal dialysis catheter was dysfunctional. We tried to use it, but it would not infuse or drain properly. For this reason it was stopped last night. I have consulted Surgery for a hemodialysis catheter placement. She was also noted to be in some mild respiratory distress. This morning, the patient was hypoglycemic and less responsive. A code green was called. She is now being evaluated by Pulmonary. OBJECTIVE: VITAL SIGNS: Blood pressure is 80/70, heart rate 70, pulse ox - initially in the 90s, but has dropped below 90. GENERAL: Lethargic, in mild respiratory distress. SKIN: Decreased turgor. HEENT: She has pinkish conjunctivae, anicteric sclerae. NECK: No neck mass, no carotid bruits, no JVD. CHEST: No deformities. LUNGS: Decreased breath sounds. HEART: Normal sinus rhythm. No murmur, no gallops, no rubs. ABDOMEN: Globular, soft, nontender, no masses. EXTREMITIES: No edema, no deformities. MEDICATIONS: 07/15/2017 - Reviewed. Please note the patient is still currently on ceftriaxone 2 grams IV q.24h. LABORATORY: 07/15/2017 - White count 9, hemoglobin 11.5, sodium 136, potassium 3.4, chloride is 97, carbon dioxide 11, BUN 39, creatinine 12.02, calcium 10.6, phosphorus 4.5, magnesium 1.6. BNP 511, blood sugar is noted to be 35. ASSESSMENT AND PLAN: 1. Hypoglycemia - this could be related to possible sepsis. Consider starting patient on D10 water. 2. Shortness of breath - ? of congestive heart failure. I have consulted Surgery for a hemodialysis catheter placement for possible hemodialysis. At the present time I do not think we can do this due to the hemodynamic instability of the patient. Blood pressure was noted to be in the 80s systolic. 3. Peritonitis - on intravenous antibiotics. Awaiting for the results of the PD culture. The PD fluid was sent on 07/14/2017, it showed a white count 33, 300. In addition, the Gram stain was also done, but showed no bacteria, but showed a lot of white cells. Please note this patient has had blood culture done a few days ago and no growth to date was noted. 07/14/2017 - PD fluid Gram stain showed no organisms with many WBCs. Overall, prognosis remains guarded with this patient. I had a discussion with the patient's daughter regarding diagnosis and prognosis. Continuing supportive care. MTDD
[2017-07-15 11:32] VITALS: BP 82/40
[2017-07-15 11:49] LABS: INR-International Normal Ratio 2.9; Prothrombin Time 31.2 SEC (12.0-14.7)
[2017-07-15 12:02] LABS: Actual Bicarbonate (HCO3a) 4.8 mEq/L (22-26); Base Excess (BEa) -25.8 mEq/L (0 (+/-) 2.5); Calcium, Ionized 1.2 mmol/L (1.12-1.30); Hematocrit-ABG 30.8 % (36.0-47.0); Hemoglobin (Hb) 8.3 g/dL (12.0-16.0); O2 Tension (PaO2) 268.9 mmHg (80.0-100.0)
[2017-07-15] MEDS ORDERED: Sodium Chloride 0.9% 1,000 ML IV SCH (12:30)
[2017-07-15] MEDS ORDERED: Sodium Bicarb 50 MEQ/50 ML Abboject 8.4% SYRINGE IVP SCH ×2 (12:30→16:00)
[2017-07-15] MEDS ORDERED: Vecuronium 10 MG VIAL ONE (14:12)
[2017-07-15] MEDS ORDERED: Vasopressin 40 UNIT, Admixture Fee 1 EACH in Sodium Chloride 0.9% 100 ML IV SCH (14:15)
--- NOTE | 2017-07-15 14:42 | OP ---
DATE OF SERVICE: 07/15/2017 SERVICE: Pulmonary Medicine. PROCEDURE: Endotracheal intubation. CONSENT: Procedure was performed under emergent conditions secondary to abrupt respiratory failure. This is implied. STAFF PHYSICIAN: Norberto Sierra M.D. MEDICATIONS USED: Etomidate 20 mg IV push PREPROCEDURE DIAGNOSES: 1. Shock. 2. Respiratory failure. POSTPROCEDURE DIAGNOSES: 1. Shock. 2. Respiratory failure. DESCRIPTION OF PROCEDURE: Vital signs monitoring was accomplished by noninvasive hemodynamic monitor ing, pulsoximetry, and telemetry. In a supine position, the patient was preoxygenated with bag valve mask ventilation maintained with unknown saturations as we could not berry picker a waveform. Following induction of anesthesia, a GlideScope was inserted through the mouth offering clear identification of the posterior oropharynx and laryngeal structures with a grade I view. The endotracheal tube was vi sualized passing through the vocal cords. Placement was confirmed by condensation in the endotrachea l tube, colorimetric capnography, and bi-axillary chest auscultation. Endotracheal tube was secured at 23 cm, measured at the teeth. The patient was placed on mechanical ventilation with good return o f volumes. Post-procedure chest x-ray revealed appropriate location. The endotracheal tube was in t he trachea. ESTIMATED BLOOD LOSS: None. COMPLICATIONS: None.
[2017-07-15 14:54] LABS: Actual Bicarbonate (HCO3a) 4.6 mEq/L (22-26); Base Excess (BEa) -25.5 mEq/L (0 (+/-) 2.5); Calcium, Ionized 1.2 mmol/L (1.12-1.30); Hemoglobin (Hb) 9.1 g/dL (12.0-16.0); O2 Tension (PaO2) 292.8 mmHg (80.0-100.0)
[2017-07-15 14:56] LABS: CO2 Tension 20.6 mmHg (35.0-45.0); Puncture Site ALINE; pH, Arterial 6.96 (7.35-7.45)
[2017-07-15 14:58] LABS: CO2 Tension 23.1 mmHg (35.0-45.0); pH, Arterial 6.93 (7.35-7.45)
[2017-07-15] MEDS: Pantoprazole 40 MG VIAL IVP SCH (16:03)
[2017-07-15] MEDS ORDERED: Albumin 5% 0 ML ONE (16:41)
[2017-07-15] MEDS ORDERED: Norepinephrine 8 MG/0.9% NS 250 ML ONE (16:41)
[2017-07-15] MEDS ORDERED: Midazolam HCl 5 mg/5 ml Vial ONE (16:42)
[2017-07-15] MEDS ORDERED: Phenylephrine 10 MG/NS 250 ML 0 ML ONE (16:42)
[2017-07-15] MEDS ORDERED: Fentanyl 100 MCG/2 ML VIAL ONE (16:42)
[2017-07-15] MEDS ORDERED: Bupivacaine/Epinephrine 0.25% 30 ML VIAL ONE (16:53)
[2017-07-15] MEDS ORDERED: Dextrose 50% Abboject 50 ML SYRINGE ONE ×2 (17:27)
[2017-07-15] MEDS ORDERED: Morphine 4 MG/ML VIAL SLOW IVP PRN ×3 (18:33→18:34)
--- NOTE | 2017-07-15 19:04 | OP ---
PROCEDURE: Left femoral art line. PREOPERATIVE DIAGNOSIS: Hypotension. POSTOPERATIVE DIAGNOSIS: Hypotension. ANESTHESIA: None. DESCRIPTION OF PROCEDURE: This was done on an emergent basis as we were unable to take the blood pre ssure with a cuff using chlorhexidine. The left groin was scrubbed. Using modified Seldinger techni que, a left femoral arterial line was placed on the first attempt without difficulty. The port flush ed arterial blood. The blood pressure after arterial line insertion was 190/47 with a good arterial waveform.
[2017-07-15 20:52] VITALS: TEMP 97.8
[2017-07-15] MEDS ORDERED: Docusate Sodium 100 MG/10 ML UDCUP PER TUBE SCH (21:00)
--- NOTE | 2017-07-15 21:13 | PRG ---
DATE OF SERVICE: 07/15/2017 SUBJECTIVE: Ms. Mederos deteriorated last night apparently, I was not notified of that. It seems t hat last night, she had some decompensation that was sent for a CT for pulmonary embolus, this was ne gative, but there was increased amount of free air in the upper abdomen. Additionally, at that time, she had progression in her bandemia and developed lactic acidosis. Ultimately, at some point in ignacio e, she was transferred to [facility]. Apparently, General Surgery was consulted. It is not clear when anna t occurred; however, this morning the patient coded and was intubated, now she is intubated. She chandrakant l go to surgery for laparoscopy. OBJECTIVE: VITAL SIGNS: Temperature 98, pulse 104, blood pressure 102/43. GENERAL: She is intubated and sedated. LABORATORY STUDIES: Sodium 136, potassium 3.4, BUN and creatinine 39 and 12, glucose 50-70. Calcium was 10. BNP 5. White count 9, hemoglobin 11, platelet count is 126. She has 55% bands. Body flui d cultures are pending. ASSESSMENT: 1. Likely acute mesenteric ischemia, possibly acute on chronic, when she infarcted her spleen, she p robably infarcted some bowel as well. She is now decompensated and would not surprise me if she has bowel. ICU and surgical staff apparently have talked with the family and was explained to them she may not survive this event. I agree that it is reasonable for her to be brought to the OR for la paroscopy attempted resection. 2. Antibiotics have been expanded include Rocephin, Flagyl, p.r.n. morphine, bicarbonate, vancomycin as well as vasopressin. We will continue to follow along.
--- NOTE | 2017-07-15 21:20 | PRG ---
DATE OF SERVICE: 07/15/2017 Genna Mederos just completed an operation, is back in the ICU. Findings of operation were gangrenous small bowel from the ligament of Treitz to the cecum with gangr enous right colon and sigmoid colon. I have discussed these findings with the family and they are in agreement with DNR and comfort measures and after they see the patient now, we will withdraw care an d extubate her and more.
--- NOTE | 2017-07-16 01:10 | OP ---
PREOPERATIVE DIAGNOSES: Septic shock, end-stage renal disease, peritoneal dialysis status, status po st cardiopulmonary arrest this morning and intubated. POSTOPERATIVE DIAGNOSES: Septic shock, end-stage renal disease, peritoneal dialysis status, status p ost cardiopulmonary arrest this morning and intubated with gangrenous small bowel in its entirety fro m the ligament of Treitz to the cecum with gangrenous right colon and gangrenous sigmoid colon, foul smelling peritoneal fluid, dark purulent. SURGEON: Dr. Natanael Izaguirre. ANESTHESIA: General. PROCEDURE: Diagnostic laparoscopy converted to laparotomy with subsequent closure without resection. Note, to discuss with family withdrawal of care. PROCEDURE IN DETAIL: Patient taken to the operating room where under general anesthesia, abdomen was prepared with chloraprep, draped in routine fashion. Left lateral subcostal incision made. Pneumop eritoneum to 15 mmHg obtained with the Veress needle, replacing it with a 5 port and laparoscope inse rted and video laparoscopy revealed gangrenous small bowel. Midline incision was made to assess the extent of this process. Incision made and carried down through the skin and subcutaneous tissue, mid line fascia, incision centered about the umbilicus. Abdominal cavity once opened revealed foul smell ing dark purulent material. There was very foul smelling. Small bowel was gangrenous from the ligam ent of Treitz to the cecum. Right colon was gangrenous, sigmoid colon was gangrenous. There was a s egment of the distal sigmoid colon and transverse colon, descending colon looked a little healthier, but the remainder of the colon was gangrenous and nonsalvageable. As this was a nonsalvageable situa tion. Sponge, needle, and instrument counts were correct. Fascia closed with continuous suture #1 P DS, skin with silverio. Patient transferred to the intensive care unit on the ventilator, anticipated withdrawal support after discussed with the family.
--- NOTE | 2017-07-16 12:59 | DS ---
DATE OF ADMISSION: 07/12/2017 DATE OF EXPIRY: 07/15/2017 FINAL DIAGNOSES: 1. Septic shock secondarily to #2. 2. Gangrenous small bowel from the ligament of Treitz to the cecum involving the right and sigmoid c olon. 3. Peritonitis secondarily to #2. 4. Splenic infarction. 5. Acute hypoxemic respiratory failure. 6. End-stage renal disease on hemodialysis. 7. Hypokalemia. 8. Hypoglycemia. 9. Lactic acidosis secondary to #2. CONSULTATIONS: Dr. Izaguirre with General Surgery Service. Dr. Brock with GI Service. Dr. Fili Sierra with Pulmonology Service. Dr. Yepez with Nephrology service. PERTINENT LABORATORY DATA AND X-RAY FINDINGS: Potassium ranged between 2.8-3.4, creatinine ranged be tween 11.49-12.44, lactic acid level ranged between 2.6-6.3. Phosphorus 4.5, magnesium level ranged between 1.4-1.6, troponin I ranged between 0.069-0.103. Lipase 20, BNP 511. CBC showed a white bloo d cell count ranging between 8.9-17.8, hemoglobin ranged between 10.2-11.5. Bands ranged between 4-5 5. Blood cultures x2 from 07/12/2017 showed no growth at 48 hours. Influenza A and B antigen negati ve, 07/12/2017. Peritoneal fluid culture dated 07/12/2017 showed no growth at 4 days. Peritoneal fl uid culture dated 07/14/2017 showed no growth at [address] of the abdomen and pelvis dated 2017 showed multifocal areas of intraperitoneal gas likely sequelae patient's peritoneal dialysis. Small volume of free fluid in the pelvis. No evidence for bowel obstruction. Normal appendix. Mode rately calcified aorta and mesenteric vessels. Component of low grade ischemia cannot be excluded. Wedged shaped area of splenic hypoperfusion suggestive of infarct. CT angiogram of the chest dated 0 07/14/[address] evidence for pulmonary embolus. Interval increase in the amount of free air i n the upper abdomen since 07/12/2017. Question of bowel perforation. Portable chest x-ray dated 03/2018 showed no pneumothorax or edema or large effusions noted. HOSPITAL COURSE: Patient was initially admitted to the telemetry unit after presenting with increase d abdominal pain with CT evidence of new splenic infarction. The patient was placed on IV morphine a nd antiemetics for pain control and control of nausea and vomiting. The patient underwent evaluation by the GI service as well as Hematology service given patient's history of prior thrombosis of hemod ialysis catheters. The patient was given broad spectrum IV antibiotic coverage including Rocephin an d monitored for questionable peritonitis given patient's history of peritoneal dialysis. Peritoneal fluid cultures were negative x2 as stated previously; however, patient was treated empirically during the hospital course. The patient was noted with splenic infarction as stated previously undergoing symptomatic treatment. A 2D echocardiogram was ordered; however, never performed. The patient sukh nued to clinically decompensate with increased abdominal pain, lactic acidosis and tachycardia. The patient was transferred from the telemetry unit to the intermediate care unit after worsening shortne ss of breath and abdominal pain. The patient was ruled out for evidence of pulmonary embolus; howeve r, CT imaging of the chest did show increased free air in the upper abdomen, prompting a surgical con sultation. Patient underwent diagnostic laparoscopy converting to laparotomy showing evidence of tamara grenous small bowel and involvement of the right and sigmoid colon. Due to the extensive nature of i schemia and gangrenous changes, discussions were had with the family regarding a comfort care. The p atient had clinically decompensated in the intermediate care unit requiring mechanical ventilation, p ressor support and critical interventions preceding the surgical exploration. Due to the patient's o verall comorbid status and surgical findings, the family decided to pursue comfort care. The patient was extubated on 07/15/2017 and at 1847 p.m. Decedent affairs were notified and family were present. No autopsy was performed and the patient was not deemed an organ donor.
--- NOTE | 2017-08-01 22:41 | EKG ---
Test Reason : Blood Pressure : / mmHG Vent. Rate : 097 BPM Atrial Rate : 097 BPM P-R Int : 184 ms QRS Dur : 112 ms QT Int : 356 ms P-R-T Axes : 053 047 018 degrees QTc Int : 452 ms Sinus rhythm with marked sinus arrhythmia Possible Left atrial enlargement Incomplete right bundle branch block Septal infarct , age undetermined Abnormal ECG Confirmed by YESY MARIN ([id number]), magazine editor ELI BOSS ([id number]) on 08/01/2017 10:40:41 PM Referred By: Confirmed By:YESY MARIN
--- NOTE | 2017-08-07 16:39 | EKG ---
Test Reason : Blood Pressure : / mmHG Vent. Rate : 130 BPM Atrial Rate : 130 BPM P-R Int : 166 ms QRS Dur : 102 ms QT Int : 338 ms P-R-T Axes : 045 066 033 degrees QTc Int : 497 ms Sinus tachycardia with Premature supraventricular complexes and with occasional Premature ventricular complexes Possible Left atrial enlargement Incomplete right bundle branch block Anteroseptal infarct (cited on or before 09-MAY-2011) Abnormal ECG When compared with ECG of 12-JUL-2017 16:50, (Unconfirmed) Premature ventricular complexes are now Present Premature supraventricular complexes are now Present Questionable change in initial forces of Anterior leads Confirmed by DR. Gamal HARMAN ([id number]) on 08/07/2017 4:39:31 PM Referred By: DORON Confirmed By:DR. Gamal HARMAN
[2017-08-19 11:42] LABS: Actual Bicarbonate (HCO3a) 10.7 mEq/L (22-26); Base Excess (BEa) -17.3 mEq/L (0 (+/-) 2.5); CO2 Tension 33.3 mmHg (35.0-45.0); Hematocrit-ABG 28.3 % (36.0-47.0); Hemoglobin (Hb) 8.8 g/dL (12.0-16.0); O2 Tension (PaO2) 226.9 mmHg (80.0-100.0); pH, Arterial 7.13 (7.35-7.45)
[2017-08-19 11:43] LABS: Analyzer IN Cardio OR
[2017-08-19 11:46] LABS: Actual Bicarbonate (HCO3a) 12.7 mEq/L (22-26); Base Excess (BEa) -15.7 mEq/L (0 (+/-) 2.5); CO2 Tension 41.1 mmHg (35.0-45.0); Hematocrit-ABG 24.3 % (36.0-47.0); Hemoglobin (Hb) 7.6 g/dL (12.0-16.0); O2 Tension (PaO2) 279.1 mmHg (80.0-100.0); pH, Arterial 7.11 (7.35-7.45)
[2017-08-19 11:47] LABS: Analyzer IN Cardio OR
== END 2017-07-15 18:47 | disposition expired | DRG 802 ==
LOC: ERS 16:35 → ERHOLD 20:46 → 2NO 07-13 15:56 → IMCU/EMU 07-14 23:33 → CCU 07-15 09:17
PROVIDERS: ADMIT Emergency Medicine; ATTEND Emergency Medicine
PROC: 3E1M39Z Irrigation of Peritoneal Cavity using Dialysate, Percutaneous Approach (ICD-10-PCS; 2017-07-12)
PROC: 0WJP4ZZ Inspection of Gastrointestinal Tract, Percutaneous Endoscopic Approach (ICD-10-PCS; principal; 2017-07-15)
PROC: 0WJP0ZZ Inspection of Gastrointestinal Tract, Open Approach (ICD-10-PCS; 2017-07-15)
PROC: 04HY32Z Insertion of Monitoring Device into Lower Artery, Percutaneous Approach (ICD-10-PCS; 2017-07-15)
PROC: 4A133B1 Monitoring of Arterial Pressure, Peripheral, Percutaneous Approach (ICD-10-PCS; 2017-07-15)
PROC: 4A133J1 Monitoring of Arterial Pulse, Peripheral, Percutaneous Approach (ICD-10-PCS; 2017-07-15)
PROC: 0BH17EZ Insertion of Endotracheal Airway into Trachea, Via Natural or Artificial Opening (ICD-10-PCS; 2017-07-15)
PROC: 5A1935Z Respiratory Ventilation, Less than 24 Consecutive Hours (ICD-10-PCS; 2017-07-15)
DX: D73.5 Infarction of spleen (principal); A41.9 Sepsis, unspecified organism; R65.21 Severe sepsis with septic shock; K55.032 Diffuse acute (reversible) ischemia of large intestine; J96.01 Acute respiratory failure with hypoxia; I46.9 Cardiac arrest, cause unspecified; I95.9 Hypotension, unspecified; E66.01 Morbid (severe) obesity due to excess calories; I12.0 Hypertensive chronic kidney disease with stage 5 chronic kidney disease or end stage renal disease; K65.9 Peritonitis, unspecified; N18.6 End stage renal disease; Z68.42 Body mass index [BMI] 45.0-49.9, adult; E11.22 Type 2 diabetes mellitus with diabetic chronic kidney disease; E11.649 Type 2 diabetes mellitus with hypoglycemia without coma; Z99.2 Dependence on renal dialysis; E78.5 Hyperlipidemia, unspecified; Z88.7 Allergy status to serum and vaccine; Z88.8 Allergy status to other drugs, medicaments and biological substances; Z87.891 Personal history of nicotine dependence; Z66 Do not resuscitate; E87.6 Hypokalemia; Z51.5 Encounter for palliative care; Z79.82 Long term (current) use of aspirin; G47.33 Obstructive sleep apnea (adult) (pediatric); D64.9 Anemia, unspecified
CPT/HCPCS: 36415; 36416; 36430; 71045; 71275; 74177; 80048; 80053; 82550; 82553; 82805; 82945; 83605; 83690; 83735; 83880; 84100; 84157; 84484; 85007; 85025; 85027; 85060; 85379; 85610; 85730; 86850; 86900; 86901; 87040; 87070; 87077; 87149; 87205; 87804; 89051; 90945; 93005; 93010; 94002; 94760; 96365; 96375; A4216; C1752; C9113; G0257; G8978-GP-CM; G8979-GP-CK; G8984-GO-CK; G8985-GO-CI; J0171; J0696; J1580; J1642; J1644; J1940; J2250; J2270; J2405; J2704; J3010; J3370; J3475; J3480; J7050; J7070; P9045; Q0162